=== PATIENT | female | born 1965 | race Asian ===

== ENCOUNTER → 2017-06-22 | Outpatient (CLI) | payer OTHER ==
--- NOTE | 2017-06-26 08:08 | MAMMOGRAPHY REPORT ---
BILATERAL DIGITAL SCREENING MAMMOGRAM TOMOSYNTHESIS WITH CAD: 06/22/2017 CLINICAL HISTORY: Routine screening. Patient has no complaints. TECHNIQUE: Breast tomosynthesis in addition to standard 2D mammography was performed. Current study was also evaluated with a Computer Aided Detection (CAD) system. COMPARISON: Comparison is made to exams dated: 04/21/2015 mammogram and 10/15/2010 mammogram. BREAST COMPOSITION: The tissue of both breasts is heterogeneously dense, which may obscure small mas ses. FINDINGS: No suspicious masses, calcifications, or areas of architectural distortion are noted in ei ther breast. There has been no significant interval change compared to prior exams. Scattered bilate ral benign-appearing calcifications are not significantly changed. Bilateral breast asymmetries are stable compared to prior exams, including an asymmetry within the left superior breast on the MLO vie w which is stable compared to the 2015 and 2010 exams. A linear scar marker denotes a scar on the lef t upper outer breast. IMPRESSION: ACR BI-RADS CATEGORY 2: BENIGN There is no mammographic evidence of malignancy. A 1 year screening mammogram is recommended. The pa tient will receive written notification of the results. Approximately 10% of breast cancers are not detected with mammography. A negative mammographic report should not delay biopsy if a clinically suggestive mass is present. Verna Fischer M.D. ah/:06/22/2017 15:52:29 Public Relations Analyst: Elaine Sommer M, [facility] letter sent: Normal 1/2 BI-RADS Code: ACR BI-RADS Category 2: Benign
== END | disposition home or self-care (01) ==
LOC: C.MAMM 14:56
PROVIDERS: ATTEND Internal Medicine
DX: Z12.31 Encounter for screening mammogram for malignant neoplasm of breast (principal)

== ENCOUNTER 2020-08-25 08:17 | Observation (INO) ==
--- NOTE | 2020-08-20 16:19 | Anesthesiology Consultation ---
Date of Service August 20, 2020 Assessment & Plan (1) Encounter for pre-operative examination: - COVID screening: Per assessment on 08/20L: Travel screen negative, no known COVID-19 positive contacts or current COVID-19 related symptoms. Patient vaccinated. Surgeon arranging preop COVID testing (scheduled 08/21 per PAT RN). Awaiting results. - Check test AM DOS Chart Review Chart Review: Acceptable Risk for Surgery and Patient NOT seen in Pre Admission Testing History Surgery Operation Date: 08/25/20 11:00 Proposed Procedures p Right Breast Lumpectomy with Localization using G[employer] contract paralegal Marker or Needle with Right [place] lymph Node Biopsy, Excision Left Breast Cyst - Ceasar Agee MD, FACS Height/Weight Height: 4 ft 9.5 in Weight: 50.122 kg Allergies Allergy/AdvReac Type Severity Reaction Status Date / Time No Known Allergies Allergy Verified 08/20/20 15:13 Medications Home Medications Medication Instructions Recorded Confirmed Last Taken calcium carbonate 1 dose PO QAM 08/20/20 08/20/20 Unknown cholecalciferol (vitamin D3) 5,000 units PO QAM 08/20/20 08/20/20 Unknown multivitamin 1 tab PO QAM 08/20/20 08/20/20 Unknown Past Medical History Medical History Cyst of left breast 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 Vitamin D deficiency Past Family History Family History Aunt Breast cancer Maternal Father Heart disease Hypertension Stroke Uncle Leukemia Family/Other Prostate cancer Cousin Other No family history of adverse response to anesthesia Tongue cancer Denies family history of Ovarian cancer Myocardial infarction Colorectal cancer Past Surgical History Surgical History H/O colonoscopy S/P section Social History Smoking Status: Never smoker Do You Dip or Chew Tobacco: No Hx Alcohol Use: No Hx Substance Use: No substance use type: does not use Lab Results Anesthesia Preop Results Results Anesthesia Widget: WBC 6.42 K/uL (4.8-10.8) 08/12/20 Hgb 12.8 g/dL (12.0-16.0) 08/12/20 Hct 38.8 % (37-47) 08/12/20 Plt 235 K/uL (130-400) 08/12/20 Na 137 mmol/L (136-145) 08/12/20 K 4.5 mmol/L (3.5-5.1) 08/12/20 Cl 106 mmol/L (98-107) 08/12/20 CO2 28 mmol/L (21-32) 08/12/20 BUN 13 mg/dl (7-18) 08/12/20 Creat 0.49 mg/dl (0.6-1.2) L 08/12/20 Glucose Level 83 mg/dl (70-99) 08/12/20 Testing Electrocardiogram Date: 08/12/20 Findings: + SB @ (43)
[~2020-08-25 08:17] MED LIST: LR 15ML/HR IV SCH; ceFAZolin 2000MG 2,000 MG/15 ML SYR IV SCH
[2020-08-25] MEDS ORDERED: fentaNYL citrate 100 MCG/2 ML VIAL ONE ×2 (09:10→12:05)
--- NOTE | 2020-08-25 09:31 | Nuclear Medicine Report ---
NM sentinel node inject only CLINICAL HISTORY: right sentinel lymph node biopsy right breast carcinoma COMPARISON STUDY: No previous studies for comparison. FINDINGS: A timeout was performed. The right breast was prepped in a sterile fashion. The skin was anesthetized with Ethyl chloride spra y. Five periareolar intradermal injections were performed utilizing a total dose of 0.51 uCi techneti um 99m Lymphoseek. The patient was sent to the operating for intraoperative localization IMPRESSION: 1. A right breast sentinel node injection was performed. ACT 112: Negative or not required by law. Electronically signed by: Bridger Newton M.D. 08/25/2020 9:30 AM
[2020-08-25] MEDS ORDERED: MIDAZOLAM HCL 1 MG/ML 2ML VIAL ONE (10:01)
[2020-08-25] MEDS ORDERED: BUPIVACAINE 0.5 % 5 MG/1 ML MPF 30ML VIAL ONE (10:26)
--- NOTE | 2020-08-25 10:42 | History & Physical Bridge Note ---
Date of Service August 24, 2020 History & Physical Bridge Note I have examined the patient, reviewed the History & Physical and in the interval since the performance of the History & Physical I have noted the following changes of clinical significance: no changes noted
[2020-08-25] MEDS ORDERED: ONDANSETRON INJ 2 MG/ML 2 ML VIAL IV PRN ×2 (10:53→14:39)
[2020-08-25] MEDS ORDERED: fentaNYL citrate 100 MCG/2 ML VIAL IV PRN (10:53)
[2020-08-25] MEDS ORDERED: ATROPINE SULFATE 0.1 MG/ML 10ML SYR IV PRN (10:53)
[2020-08-25] MEDS ORDERED: ePHEDrine sulfate 50 MG/ML AMP IV PRN (10:53)
[2020-08-25] MEDS ORDERED: HYDROmorphone INJ 1 MG/ML SYRINGE IV PRN (10:53)
[2020-08-25] MEDS ORDERED: PROPOFOL IV EMULSION 10 MG/ML 20 ML VIAL IV ONE (11:55)
[2020-08-25] MEDS ORDERED: ePHEDrine sulfate 50 MG/ML SYR ONE (11:55)
[2020-08-25] MEDS ORDERED: LIDOCAINE 2% 2 ML VIAL/AMP(20MG/ML) INFIL ONE (11:55)
[2020-08-25] MEDS ORDERED: PHENYLEPHRINE 100MCG/ML 5ML SYR ONE (11:55)
[2020-08-25] MEDS ORDERED: ONDANSETRON INJ 2 MG/ML 2 ML VIAL ONE (11:55)
[2020-08-25] MEDS ORDERED: DEXAMETHASONE SOD INJ 4 MG/ML VIAL ONE (11:55)
[2020-08-25] MEDS ORDERED: METHYLENE BLUE 0.5% 10 ML VIAL ONE (12:09)
--- NOTE | 2020-08-25 12:38 | Post Operative Brief Note ---
PG Immediate Post Op with CF Date of Surgery August 25, 2020 Pre & Post Diagnosis Operation Date: 08/25/20 11:00 Pre-Op Diagnosis: Ductal carcinoma in situ Right Breast, Left Breast Cyst Post-Op Diagnosis: Ductal carcinoma in situ Right Breast, Left Breast Cyst I identified the patient and participated in the time-out.: Yes Procedure Operation Date: 08/25/20 11:00 Actual Procedures p Right Breast Lumpectomy with Localization using Gini screen tacker Marker with Right [place] lymph Node Biopsy, Excision Left Breast Cyst(Bilateral) - Ceasar Agee MD, FACS Surgeon Ceasar Agee MD, FACS Wire Puller Sha Bellamy Estimated Blood Loss 10 Findings Consistent with Post-Op Diagnosis Specimens Specimen Description: A: left breast cyst B: Additional right axillary lymph node-fresh sent 1155 C. right breast tissue: long silk lateral, short silk medial, methylene blue deep/retro areola. Anterior skin/inferior out of body 1211, sent 1215 D. Additional deep retro aerola tissue, long silk lateral, short silk medial, methylene blue new margin E. Additional inferior tissue, long silk lateral, short silk medial, methylene blue new margin FS#1 right sentinel lymph node sent 1155
[2020-08-25] MEDS ORDERED: ACETAMINOPHEN 1,000 MG/100 ML VIAL IV ONE (12:40)
--- NOTE | 2020-08-25 13:26 | Operative Report (OR) ---
DATE OF PROCEDURE: 08/25/2020 NAME OF OPERATION: Right lumpectomy with sentinel lymph node biopsy and excision of left breast cyst . PREOPERATIVE DIAGNOSES: Left breast cyst and ductal carcinoma in situ, right breast. STAFF SURGEON: Ceasar Agee MD. UNDERCOVER AGENT: Luci Bellamy PA-C. ANESTHESIA: General. DESCRIPTION OF PROCEDURE: The patient was brought in the operating room and placed on the operating table in supine position. Her arms were extended onto arm boards. Her chest and breasts on both aditi es were prepped and draped in the usual fashion. My library circulation assistant helped with prepping, draping, excisio n of the breast tissue and closure of the wounds. Left breast was initially approached. She had a s mall cyst in the left upper breast. This was excised using an elliptical incision, then closed using 5-0 Prolene suture. The right breast was then approached. We made an incision in the right axilla using 0.5% plain Rafal ine. Using the Neoprobe, we dissected deep down into the axilla, identifying the sentinel lymph node and at least 2 additional nodes. The sentinel lymph node was sent for frozen section and found to b e negative. The other lymphatic tissue was sent for permanent section. At this point, a lumpectomy in the right breast was performed. The patient had 2 Gini markers in the breast, one was retroareola r, one was more inferior and toward the skin. An elliptical incision was made in the anterior lower breast, taking some skin and then dissecting do wn around what I felt were the Gini markers, one marker was retroareolar. The tissue was then marked as right breast tissue long silk lateral, short silk medial, skin is anterior/inferior, methylene bl ue is deep/retroareolar. We placed a tissue into the Faxitron and sent the image to Dr. Patino. W e felt that we would take additional tissue. Additional deep/retroareolar tissue was taken and marke d with long silk lateral, short silk medial, methylene blue new margin. Additional inferior tissue wa s taken, again marked long silk lateral, short silk medial, methylene blue new margin. I did place c lips in the retroareolar area. Deep tissue in both wounds were reapproximated using 2-0 plain suture. Then, the skin in the axilla closed using 4-0 nylon suture, skin in the breast using 4-0 Monocryl with Steri-Strips. Dressings ap plied. The patient was transferred to recovery room in stable condition. Job ID: [id number]
--- NOTE | 2020-08-25 13:59 | Anesthesiology Progress Note ---
Date of Service August 25, 2020 Anesthesia Post Procedure Vital Signs Vital Signs: Temp Pulse Pulse Resp BP Pulse Ox 08/25/20 13:45 62 16 113/75 95 08/25/20 13:30 65 18 117/74 97 08/25/20 13:20 36.2 C L 71 20 116/84 96 08/25/20 13:10 67 14 122/78 100 08/25/20 13:00 77 15 122/79 100 08/25/20 12:50 36.0 C L 76 12 120/81 100 08/25/20 09:38 36.6 C 64 20 127/84 100 Transfer of Care Handoff Completed per policy Notes Mental Status: alert / awake / arousable and participated in evaluation Patient Amnestic to Procedure: Yes Nausea / Vomiting: adequately controlled Pain: adequately controlled Airway Patency, RR, SpO2: stable & adequate BP & HR: stable & adequate Hydration State: stable & adequate Anesthetic Complications: no major complications apparent and Pt Satisfied with anesthetic care
[2020-08-25] MEDS ORDERED: oxyCODONE HCL IR 5 MG TAB (IMMEDIATE RELEASE) PO PRN (14:39)
[2020-08-25] MEDS ORDERED: SODIUM CHLORIDE 0.9% 1000ML 1,000 ML IV SCH (14:39)
[2020-08-25] MEDS ORDERED: PROMETHAZINE HCL 12.5 MG in SODIUM CHLORIDE 0.9% 50 ML IV PRN (14:39)
[2020-08-25] MEDS ORDERED: HYDROmorphone INJ 0.5 MG/0.5 ML SYR IV PRN (14:39)
[2020-08-25] MEDS ORDERED: PROMETHAZINE HCL 25 MG in SODIUM CHLORIDE 0.9% 50 ML IV PRN (14:39)
[2020-08-25] MEDS: ceFAZolin 1000MG 1,000 MG/7.5 ML SYR IV SCH (19:31)
[2020-08-26] MEDS: ceFAZolin 1000MG 1,000 MG/7.5 ML SYR IV SCH (04:00)
[2020-08-26] MEDS: ACETAMINOPHEN 325 MG TAB PO PRN ×2 (04:03→09:16)
--- NOTE | 2020-08-26 09:16 | Discharge Summary (DS) ---
DATE OF DISCHARGE: 08/26/2020 PRINCIPAL DIAGNOSES: Right breast cancer and left breast cyst. PROCEDURES: The patient underwent excision of left breast cyst and right lumpectomy with sentinel ly mph node biopsy. HISTORY OF PRESENT ILLNESS: The patient is a 54-year-old female with DCIS of the right breast and a left breast cyst. The patient was brought into the hospital on 08/25/2020 where she underwent excisio n of left breast cyst and right lumpectomy with right sentinel lymph node biopsy. She did well from her operation and has done well overnight, has felt stable for discharge home today to be followed in the surgical clinic next week. Job ID: [id number]
--- NOTE | 2020-08-26 14:08 | Mammography Report ---
SPECIMEN RIGHT BREAST: 08/25/2020 CLINICAL HISTORY: 54-year-old woman with biopsy-proven high-grade DCIS in the retroareolar/central ri ght breast. She presents for lumpectomy and preoperative localization with [employer] Flatbed Driver was performed . COMPARISON: Comparison is made to exams dated: 08/21/2020 localization, 08/12/2020 breast MRI, stereotactic biopsy, 07/31/2020 mammogram, 07/23/2020 mammogram, and 07/08/2020 mammogram - [facility]. FINDINGS: Specimen radiograph was performed of the right breast lumpectomy specimen. The tissue demon strates both [employer] Flatbed Driver reflectors, an hourglass shaped biopsy marker centrally within the tissue and a punctate calcification between the reflectors, compatible with successful preoperative localizatio n and subsequent surgical excision. The surgeon also reported obtaining additional tissue near the [employer] Flatbed Driver in the retroareolar region, which is located along the edge of the tissue specimen. IMPRESSION: SPECIMEN Right breast lumpectomy specimen radiograph, as above. Frances Patino M.D. ay/:08/25/2020 15:40:55 Medical Screener: RT Hayley,R, M, [facility]
== END 2020-08-26 09:56 | disposition home or self-care (01) ==
LOC: 3W 08:17 → ASU 08:17